=== PATIENT | male | born 1970 | race African-American/Black ===

== ENCOUNTER 2021-04-18 07:27 | Emergency (ER) | payer BC, SELFPAY ==
[2021-04-18] MEDS ORDERED: Ibuprofen 200 MG TAB ONE (09:50)
[2021-04-18] MEDS ORDERED: predniSONE 20 MG TAB ONE (09:50)
[2021-04-18] MEDS ORDERED: traMADol HCl 50 MG TAB ONE (09:50)
== END 2021-04-18 12:08 | disposition home or self-care (01) ==
LOC: CSHERS 07:27
DX: M10.9 Gout, unspecified (principal); I10 Essential (primary) hypertension; D86.9 Sarcoidosis, unspecified
CPT/HCPCS: 99283; J7512

== ENCOUNTER 2022-05-02 16:29 | Emergency (ER) | payer BC ==
[2022-05-02] MEDS ORDERED: Ketorolac Tromethamine 30 MG/ML VIAL ONE (17:40)
== END 2022-05-02 17:50 | disposition home or self-care (01) ==
LOC: CSHERS 16:29
DX: M25.562 Pain in left knee (principal)
CPT/HCPCS: 96372; J1885

== ENCOUNTER 2023-12-25 04:22 | Observation (INO) | payer BC ==
[2023-12-25 05:27] LABS: #Basophils 0.04 10x3/uL (0.0-0.2); #Eosinphils 0.21 10x3/uL (0.0-0.5); #Monocytes 0.93 10x3/uL (0.0-1.1); #Neutrophils 5.87 10x3/uL (1.5-8.4); %Basophils 0.5 % (0.0-2.0); %Eosinophils 2.4 % (0.0-6.0); %Lymphocytes 19.6 % (18.0-47.0); %Monocytes 10.5 % (0.0-10.0); %Neutrophils 66.5 % (40.0-75.0); Hematocrit 45.5 % (38.8-50.0); Hemoglobin 15.1 g/dL (13.5-17.5); Mean Corpuscular HGB CONC 33.2 g/dL (32.0-36.0); Mean Corpuscular Hemoglobin 29.4 pg (27.0-33.0); Mean Corpuscular Volume 88.5 fL (81.2-95.1); Mean Platelet Volume 9.8 fL (7.4-10.4); Platelet Count 217 10x3/uL (150-450); RBC Distribution Width 13.1 % (11.5-14.5); Red Blood Cell (RBC) Count 5.14 10x6/uL (4.32-5.72); White Blood Cell (WBC) Count 8.8 10x3/uL (3.5-10.5)
[2023-12-25 05:47] LABS: Troponin I 0.015 ng/mL (< 0.028)
[2023-12-25 05:50] LABS: ALT (SGPT) 20 U/L (8-55); AST (SGOT) 23 U/L (5-34); Albumin 3.5 g/dL (3.5-5.0); Alkaline Phosphatase 50 U/L (40-110); Anion Gap 19 mmol/L (10-20); BUN (Urea Nitrogen) 20 mg/dL (8.4-25.7); Bilirubin, Total 1.2 mg/dL (0.2-1.2); Calc. Creatinine Clearance 0 mL/min (70-130); Carbon Dioxide 17 mmol/L (22-29); Chloride 106 mmol/L (98-107); Estimated GFR 52; Globulin 3.7 g/dL (2.4-3.5); Glucose 107 mg/dL (70-105); Potassium 3.9 mmol/L (3.5-5.1); Protein, Total 7.2 g/dL (6.0-8.3); Sodium 138 mmol/L (136-145)
[2023-12-25] MEDS ORDERED: Acetaminophen 325 MG TAB PO PRN (07:35)
[2023-12-25] MEDS ORDERED: Ondansetron ODT 4 MG TAB PO PRN (07:35)
[2023-12-25] MEDS ORDERED: Calcium Carbonate 500 MG ChewTAB PO PRN (07:35)
[2023-12-25] MEDS ORDERED: Ondansetron PF 4 MG/2 ML Vial IVP PRN (07:35)
[2023-12-25] MEDS ORDERED: Senokot S 8.6-50 MG TAB PO PRN (07:35)
[2023-12-25] MEDS ORDERED: traMADol HCl 50 MG TAB PO PRN (07:37)
[2023-12-25 08:41] LABS: Troponin I Less than 0.010 ng/mL (< 0.028)
[2023-12-25] MEDS ORDERED: Furosemide 40 MG (4 mL) VIAL ONE (08:52)
[2023-12-25] MEDS ORDERED: Enoxaparin 40 MG (0.4 mL) SYRINGE ONE (08:52)
[2023-12-25] MEDS ORDERED: methylPREDNISolone Sod Succ/PF 125 MG/2 ML VIAL ONE (09:17)
[2023-12-25] MEDS: Enoxaparin 40 MG (0.4 mL) SYRINGE SC SCH (09:23)
[2023-12-25] MEDS: Allopurinol 100 MG TAB PO SCH (09:23)
[2023-12-25] MEDS: methylPREDNISolone Sod Succ/PF 125 MG/2 ML VIAL IVP SCH (09:24)
[2023-12-25] MEDS: Furosemide 40 MG (4 mL) VIAL SLOW IVP SCH (09:24)
[2023-12-25 11:38] LABS: Troponin I Less than 0.010 ng/mL (< 0.028)
[2023-12-25] MEDS ORDERED: Iopamidol 370 76% 100 ML VIAL ONE (15:03)
== END 2023-12-25 17:47 | disposition home or self-care (01) ==
LOC: CSHERS 04:22 → SUATTDRO 04:22 → CSHERHOLD 08:08
PROVIDERS: ADMIT Internal Medicine; ATTEND Internal Medicine
DX: R07.89 Other chest pain (principal); I11.0 Hypertensive heart disease with heart failure; I50.9 Heart failure, unspecified; D86.9 Sarcoidosis, unspecified; Z79.51 Long term (current) use of inhaled steroids; Z79.899 Other long term (current) drug therapy
CPT/HCPCS: 36415; 71045; 71275; 80053; 83880; 84484; 85025; 85379; 93005; G0378; J1650; J1940; J2919; Q9967